=== PATIENT | male | born 1950 | race Two or more races ===

== ENCOUNTER 2017-10-09 21:37 | Emergency (ER) | payer OTHER, MEDICARE ==
[~2017-10-09 21:37] MED LIST: AMBIEN10 MG PO; AMITRIPTYLINE H50 MG PO; BACTRIM,SEPT1 TABLET PO; ENDOCET 5-3251 EACH PO; GABAPENTIN300 MG PO; KEFLEX500 MG PO; LISINOPRIL10 MG PO; ZOLPIDEM TARTRA10 MG PO
[2017-10-09 21:49] LABS: BASOPHIL (%) 0.5 % (0-1); BASOPHIL COUNT 0.1 K/uL (0-0.1); EOSINOPHIL (%) 2.5 % (0-5); EOSINOPHIL COUNT 0.3 K/uL (0-0.3); HEMATOCRIT 38.6 % (38.0-50.0); HEMOGLOBIN 13.3 G/DL (12.5-16.6); IMMATURE GRANULOCYTE (%) 0.4 % (0.0-0.7); LYMPHOCYTE (%) 44.7 % (15-42); LYMPHOCYTE COUNT 5.5 K/uL (1.0-2.8); MCH 32.1 PG (29.0-34.0); MCHC 34.5 G/DL (30.0-36.0); MCV 93.2 FL (86-99); MONOCYTE (%) 15.1 % (3-12); MONOCYTE COUNT 1.8 K/uL (0-0.8); NEUTROPHIL (%) 36.8 % (45-76); NEUTROPHIL COUNT 4.5 K/uL (1.8-6.4); PLATELET COUNT 138 K/uL (156-360); RBC DIS.WIDTH-CV 14.4 % (11.8-14.6); RED BLOOD COUNT 4.14 M/uL (4.00-5.50); WHITE BLOOD COUNT 12.2 K/uL (4.1-10.2)
[2017-10-09 21:57] LABS: APPEARANCE CLOUDY ((CLEAR)); BILIRUBIN NEGATIVE; BLOOD LARGE; COLOR AMBER ((YELLOW)); GLUCOSE (STRIP) NEGATIVE; KETONES NEGATIVE; LEUKOCYTES LARGE; NITRITE POSITIVE; PROTEIN (STRIP) 30
[2017-10-09 22:00] LABS: AMYLASE 57 IU/L (1-118); CHLORIDE 112 mEq/L (99-109); POTASSIUM 3.5 mEq/L (3.7-5.4); SODIUM 142 mEq/L (136-147)
[2017-10-09 22:01] LABS: GLUCOSE 108 mg/dL (70-99)
[2017-10-09 22:04] LABS: SERUM ETHYL ALCOHOL < 10 mg/dL
[2017-10-09 22:05] LABS: CREATININE 0.9 mg/dL (0.6-1.3); GFR ESTIMATE (CALCULATED) > 59 mL/min/ (58.99-99999)
[2017-10-09 22:06] LABS: UREA NITROGEN (BUN) 14 mg/dL (9-23)
[2017-10-09 22:08] LABS: LIPASE 74 U/L (1.0-51.0)
[2017-10-09 22:13] LABS: RED BLOOD CELLS TNTC /HPF (0-5); UCUL ADDED? YES; WHITE BLOOD CELLS TNTC /HPF (0-5)
[2017-10-09 22:16] LABS: AMPHETAMINE NEGATIVE (500 ng/mL); BARBITURATES NEGATIVE (200 ng/mL); BENZODIAZEPINES NEGATIVE (150 ng/mL); BUPRENORPHINE NEGATIVE (10 ng/mL); COCAINE NEGATIVE (150 ng/mL); METHADONE NEGATIVE (200 ng/mL); METHAMPHETAMINE NEGATIVE (500 ng/mL); OPIATES (MORPHINE) NEGATIVE (100 ng/mL); OXYCODONE NEGATIVE (100 ng/mL); PHENCYCLIDINE NEGATIVE (25 ng/mL); PROPOXYPHENE NEGATIVE (300 ng/mL); THC CANNABINOIDS NEGATIVE (50 ng/mL); TRICYCLIC ANTIDEPRESSANTS NEGATIVE (300 ng/mL)
== END 2017-10-09 23:38 | disposition designated cancer center or children's hospital, planned readmission (85) ==
LOC: TRA 21:37
PROVIDERS: Emergency Medicine
PROC: 0BH17EZ Insertion of Endotracheal Airway into Trachea, Via Natural or Artificial Opening (ICD-10-PCS; principal; 2017-10-09)
DX: T22.292A Burn of second degree of multiple sites of left shoulder and upper limb, except wrist and hand, initial encounter (principal); T22.291A Burn of second degree of multiple sites of right shoulder and upper limb, except wrist and hand, initial encounter; T24.292A Burn of second degree of multiple sites of left lower limb, except ankle and foot, initial encounter; T24.291A Burn of second degree of multiple sites of right lower limb, except ankle and foot, initial encounter; T23.292A Burn of second degree of multiple sites of left wrist and hand, initial encounter; T23.291A Burn of second degree of multiple sites of right wrist and hand, initial encounter; T25.292A Burn of second degree of multiple sites of left ankle and foot, initial encounter; T25.291A Burn of second degree of multiple sites of right ankle and foot, initial encounter; T22.262A Burn of second degree of left scapular region, initial encounter; T21.21XA Burn of second degree of chest wall, initial encounter; X00.0XXA Exposure to flames in uncontrolled fire in building or structure, initial encounter; Z85.05 Personal history of malignant neoplasm of liver
CPT/HCPCS: 71045; 80048; 81003; 82150; 83690; 85025; 86850; 86900; 86901; 87077; 87086; 87147; 87186; 90832; 99281; 99285; G0480; J3010